=== PATIENT | male | born 1990 | race Native Hawaiian/Other Pacific Islander ===

== ENCOUNTER 2017-06-26 10:44 | Day surgery (SDC) | payer BC ==
[2017-06-26 10:55] VITALS: BMI 18.6
[2017-06-26 11:11] LABS: BASO % 0.2 % (0.0-2.0); EOS % 0.6 % (0.0-4.0); HEMATOCRIT 42.4 % (35.0-51.0); LYMPH # 1.1 K/uL (1.0-4.3); LYMPH % 21.2 % (20.0-40.0); MEAN CELL VOLUME 85.2 fL (80.0-94.0); MEAN CORPUSCULAR HEMOGLOBIN 28.7 pg (27.0-31.0); MEAN CORPUSCULAR HGB CONC 33.7 g/dL (33.0-37.0); MEAN PLATELET VOLUME 8.9 fL (7.2-11.7); MONO # 0.3 K/uL (0.0-0.8); MONO % 4.9 % (0.0-10.0); RED CELL DISTRIBUTION WIDTH 13.5 % (11.5-14.5); WHITE BLOOD COUNT 5.3 K/uL (4.8-10.8)
[2017-06-26 11:24] LABS: CHLORIDE 101 mmol/L (98-107); POTASSIUM 4.2 mmol/L (3.6-5.2); SODIUM 137 mmol/L (132-148)
[2017-06-26 11:27] LABS: BLOOD UREA NITROGEN 12 mg/dL (9-20); CARBON DIOXIDE 27 mmol/L (22-30); GFR AFRICAN-AMERICAN > 60; GLUCOSE,RANDOM 81 mg/dL (75-110)
[2017-06-26 11:28] LABS: CALCIUM 9.1 mg/dl (8.6-10.4)
[2017-06-26] MEDS ORDERED: Lidocaine 1% Inj (20ml) ONE (12:53)
[2017-06-26] MEDS ORDERED: Lidocaine 2% Inj (20ml) ONE (12:53)
[2017-06-26] MEDS ORDERED: Bacitracin Ointment 30 GM TUBE ONE (12:53)
[2017-06-26] MEDS ORDERED: Bupivacaine HCl 0.5% PF (10 ml) Inj ONE (12:53)
[2017-06-26] MEDS ORDERED: Lactated Ringer's 1,000 ML IV ONE ×2 (13:08→15:00)
[2017-06-26] MEDS ORDERED: Midazolam 2 MG/2 ML VIAL ONE (13:15)
[2017-06-26] MEDS ORDERED: Propofol 10 mg/ml Inj (20 ML) ONE (13:16)
[2017-06-26] MEDS ORDERED: ceFAZolin IV 1 gm in Dextrose 1 GM/50 ML BAG IVPB ONE (13:18)
[2017-06-26] MEDS ORDERED: Bupivacaine HCl 0.25% PF (10 ml) Inj ONE (13:18)
[2017-06-26 16:00] VITALS: RESP 18
[2017-06-26 16:17] VITALS: BP 110/70; PULSE 75; TEMP 98; O2SAT 100
--- NOTE | 2017-07-01 18:33 | OP ---
PROCEDURE DATE: PREOPERATIVE DIAGNOSES: Severe meatal stenosis and ability to pull the foreskin, bending the tip of the penis. POSTOPERATIVE DIAGNOSES: Severe phimosis and short frenulum. SURGERY: Circumcision, frenulectomy, and reconstruction of the frenulum. DESCRIPTION OF PROCEDURE: While the patient in supine position, genitalia prepped and draped in sterile fashion. The patient given Ancef 1 g, circular incision carried on the skin on the level of the glans penis. All the bleeders coagulated. The area injected with combination of Marcaine and Xylocaine. After that, incision of the severe phimosis was done on the midline going through the mucosa, to the area where the skin incision made. The glans penis inspected after pulling the foreskin and cleaned with Betadine. The frenulum was short. Incision of the mucosa done around the glans penis. Frenulectomy done and reconstruction of the frenulum done. All the excessive skin and mucosa removed. All the bleeders coagulated. Some of the large bleeders tied using 4-0 chromic. Approximated the mucosa to the skin at 12, 6, 9 and 3, suture between the mucosa to the skin between those corners done. Bacitracin ointment painted around and Vaseline gauze placed around the wound. compressed the area and incised on the 6 and 12 to prevent any severe compression of the area. The patient tolerated the procedure well. There was no bleeding. The patient transferred to the recovery room in stable condition. Thao Ocampo MD
== END 2017-06-26 16:31 | disposition home or self-care (01) ==
LOC: C.SDS 10:44
PROVIDERS: ATTEND Specialist
DX: N47.1 Phimosis (principal)
CPT/HCPCS: 36415; 54161; 80048; 85025; 88304; J0690; J2250; J2704; J3010; J7120